=== PATIENT | female | born 1975 | race Caucasian/White ===

== ENCOUNTER 2025-03-05 08:08 | Emergency (ER) | payer OTHER ==
[~2025-03-05] VITALS: Ht 172.7 cm; Wt 84.5 kg
[2025-03-05] MEDS ORDERED: SODIUM CHLORIDE 0.9% 1,000 ML IV ONE (08:30)
[2025-03-05] MEDS ORDERED: KETOROLAC TROMETHAMINE 15 MG/ML VIAL IV ONE (08:30)
[2025-03-05 08:56] LABS: BASOPHILS 0.7 % (0.1-1.2); EOSINOPHILS 4.3 % (0.7-5.8); LYMPHOCYTES 17.8 % (19.3-51.7); MCH 29.8 PG (25.6-32.2); MCHC 33.8 g/dL (32.2-35.5); MCV 88.1 fL (79.4-94.8); MONOCYTES 7.3 % (4.7-12.5); NEUTROPHILS 69.4 % (34.0-71.1); RBC 4.77 M/uL (3.93-5.22)
[2025-03-05 09:15] LABS: ALT (SGPT) 25.0 U/L (14-59); AST (SGOT) 14.0 U/L (15-37); GLOMERULAR FILTRATION RATE,EST 105.0 mL/min (>60); PROTEIN, TOTAL 6.8 g/dL (6.4-8.2); UREA NITROGEN 14.0 mg/dL (7-18)
[2025-03-05 09:30] LABS: BLOOD/HGB, URINE NEGATIVE (Negative); KETONE, URINE TRACE (Negative); LEUK ESTERASE, URINE NEGATIVE (negative); NITRITE, URINE NEGATIVE (negative)
[2025-03-05] MEDS ORDERED: HYDROMORPHONE HC2 MG PO (09:44)
[2025-03-05] MEDS ORDERED: COMPAZINE25 MG PR (09:44)
[2025-03-05] MEDS ORDERED: MELOXICAM15 MG PO (09:58)
[2025-03-05] MEDS ORDERED: NEURONTIN400 MG PO (09:58)
[2025-03-05] MEDS ORDERED: AIMOVIG AU140 MG/1 M SUB-Q (09:59)
[2025-03-05] MEDS ORDERED: RIZATRIPTAN10 MG PO (09:59)
[2025-03-05] MEDS ORDERED: BASAGLAR K100 UNIT/1 SUB-Q (10:00)
[2025-03-05] MEDS ORDERED: INSULIN AS100 UNIT/2 SUB-Q (10:01)
[2025-03-05] MEDS ORDERED: METFORMIN HCL1000 M1 PO (10:01)
[2025-03-05] MEDS ORDERED: DULOXETINE HCL30 MG PO (10:01)
[2025-03-05] MEDS ORDERED: ONDANSETRON ODT8 MG PO (10:02)
[2025-03-05] MEDS ORDERED: VENTOLIN HFA18 GM INH (10:02)
[2025-03-05] MEDS ORDERED: ALBUTEROL0.63 MG/3 INH (10:02)
[2025-03-05 10:07] VITALS: BP 190/116
== END 2025-03-05 10:07 | disposition home or self-care (01) ==
LOC: ED 08:08
PROVIDERS: Emergency Medicine
DX: E11.43 Type 2 diabetes mellitus with diabetic autonomic (poly)neuropathy (principal); K31.84 Gastroparesis; Z88.1 Allergy status to other antibiotic agents; Z91.030 Bee allergy status
CPT/HCPCS: 36415; 80053; 81003; 83690; 85025; 96374; 96375; 99284-25; J1200; J1885; J2405; J7030

== ENCOUNTER 2025-04-30 06:31 | Day surgery (SDC) | payer OTHER ==
[~2025-04-30] VITALS: Ht 172.7 cm; Wt 84.0 kg
[~2025-04-30 06:31] MED LIST: AIMOVIG AU140 MG/1 M SUB-Q; ALBUTEROL0.63 MG/3 INH; BASAGLAR K100 UNIT/1 SUB-Q; COMPAZINE25 MG PR; DICYCLOMINE HCL10 MG PO; DULOXETINE HCL30 MG PO; HYDROMORPHONE HC2 MG PO; INSULIN AS100 UNIT/2 SUB-Q; JARDIANCE10 MG PO; LISINOPRIL20 MG PO; MELOXICAM15 MG PO; METFORMIN HCL1000 M1 PO; NEURONTIN400 MG PO; OMEPRAZOLE20 MG PO; ONDANSETRON ODT8 MG PO; RIZATRIPTAN10 MG PO; ROSUVASTATIN CA40 MG PO; VENTOLIN HFA18 GM INH
[2025-04-30 06:56] VITALS: BP 146/77
[2025-04-30 07:25] LABS: ALT (SGPT) 17.0 U/L (14-59); AST (SGOT) 12.0 U/L (15-37); GLOMERULAR FILTRATION RATE,EST 106.0 mL/min (>60); PROTEIN, TOTAL 7.0 g/dL (6.4-8.2); UREA NITROGEN 7.0 mg/dL (7-18)
[2025-04-30] MEDS ORDERED: LIDOCAINE HCL 2% 5 ML SDV ONE (07:25)
[2025-04-30] MEDS ORDERED: LIDOCAINE HCL 1% 5 ML SDV INJ ONE (07:30)
[2025-04-30] MEDS ORDERED: LACTATED RINGER'S 1,000 ML IV SCH (07:30)
[2025-04-30] MEDS ORDERED: IBLOOD GLUCOSE TEST STRIP 1 EA TEST VI PRN (07:30)
--- NOTE | 2025-04-30 07:45 | NUR ---
PT NOT AVAILABLE FOR VISIT. PROVIDED PRAYER.
--- NOTE | 2025-04-30 08:30 | NUR ---
04/30/25 0830 Emperatriz Buckley 0821- PT PRESENTS TO PACU, LEFT LATERAL POSITION, NON REACTIVE TO STIMULUS. BREATHING EVEN AND NON LABORED ON 6L O2 PER MASK. LR INFUSING TO RH IV. ABD SOFT, NON DISTENDED. ALL MONITORS IN PLACE.
[2025-04-30 09:08] VITALS: BP 174/92
[2025-05-01] MEDS ORDERED: LACTATED RINGER'S 1,000 ML IV SCH (05:00)
[2025-05-01] MEDS ORDERED: LIDOCAINE HCL 1% 5 ML SDV INJ ONE (07:00)
[2025-05-01] MEDS ORDERED: IBLOOD GLUCOSE TEST STRIP 1 EA TEST VI PRN (07:00)
--- NOTE | 2025-05-04 12:34 | PATH ---
[facility] [address] [facility] [place], [place] [address] Signed SPECIMEN(S): A COLON POLYP AT 10 CM SPECIMEN SOURCE: A. COLON POLYP AT 10 CM CLINICAL HISTORY: Screening, diverticulitis FINAL PATHOLOGIC DIAGNOSIS: Colon polyp at 10 cm: - Hyperplastic polyp (three fragments). JVR:clv MICROSCOPIC EXAMINATION: Histologic sections of all submitted blocks are examined by light microscopy. These findings, together with the gross examination, support the pathologic diagnosis. GROSS DESCRIPTION: The specimen, labeled and designated "Tamie, colon polyp at 10 cm," is received in formalin and consists of three [place] soft tissue fragments, ranging from 0.3-0.6 cm. Entirely submitted in (A1). VB (under the direct supervision of a pathologist) The Gross Description was prepared using a voice recognition system. The report was reviewed for accuracy; however, sound-alike word errors, addition and/or deletions may occur. If there is any question about this report, please contact Client Services. PERFORMING LABORATORY: Technical component was performed by [facility], [address] [place] [id number] (CLIA# [id number]). Professional interpretation was performed by [email or web address], [address] [place] [id number] (CLIA#: [id number]). Diagnostician: Dieudonne Be MD Pathologist Electronically Signed 05/04/2025 Copies: PATIENT NAME: ARCELIA LINDA PATHOLOGY DATE OF : 71 REPORT #: [id number] PHYSICIAN: DELBERT CHANEL PCP: KRISS DUNBAR PA-C REPORT IS CONFIDENTIAL AND NOT TO BE RELEASED WITHOUT AUTHORIZATION [address] [address] Signed ~ PATIENT NAME: ARCELIA LINDA PATHOLOGY DATE OF : 71 REPORT #: [id number] PHYSICIAN: DELBERT CHANEL PCP: KRISS DUNBAR PA-C REPORT IS CONFIDENTIAL AND NOT TO BE RELEASED WITHOUT AUTHORIZATION
== END 2025-04-30 09:10 | disposition home or self-care (01) ==
LOC: OPS 06:31 → DS 06:31 → OPS 08:45 → DS 08:45 → OPS 09:10
PROVIDERS: ATTEND Surgery
PROC: 0DBP8ZX Excision of Rectum, Via Natural or Artificial Opening Endoscopic, Diagnostic (ICD-10-PCS; principal; 2025-04-30 08:40)
DX: Z12.11 Encounter for screening for malignant neoplasm of colon (principal); K62.1 Rectal polyp; K57.30 Diverticulosis of large intestine without perforation or abscess without bleeding; E11.43 Type 2 diabetes mellitus with diabetic autonomic (poly)neuropathy; I10 Essential (primary) hypertension; E78.5 Hyperlipidemia, unspecified; J45.909 Unspecified asthma, uncomplicated; Z88.8 Allergy status to other drugs, medicaments and biological substances; Z88.7 Allergy status to serum and vaccine; Z88.1 Allergy status to other antibiotic agents; Z91.038 Other insect allergy status; Z79.84 Long term (current) use of oral hypoglycemic drugs
CPT/HCPCS: 00812; 36415; 80053; J2003; J2704; J7121